=== PATIENT | female | born 1945 | race Caucasian/White ===

== ENCOUNTER → 2017-04-29 | Outpatient (CLI) | payer OTHER | END | disposition home or self-care (01) | LOC: C.PAPS 08:42 | PROVIDERS: ATTEND Obstetrics & Gynecology | DX: Z12.4 Encounter for screening for malignant neoplasm of cervix (principal) ==

== ENCOUNTER → 2017-07-14 | Outpatient (CLI) | payer OTHER ==
--- NOTE | 2017-07-14 13:54 | MAMMOGRAPHY REPORT ---
BILATERAL DIGITAL SCREENING MAMMOGRAM WITH CAD: 07/14/2017 CLINICAL HISTORY: Routine screening. Patient has no complaints. TECHNIQUE: Current study was also evaluated with a Computer Aided Detection (CAD) system. Bilateral CC and MLO views were obtained. COMPARISON: Comparison is made to exams dated: 07/13/2016 mammogram, 07/10/2015 mammogram, 07/09/2014 m ammogram, 06/18/2013 mammogram, and 06/06/2012 mammogram - [facility]. BREAST COMPOSITION: There are scattered areas of fibroglandular density in both breasts. FINDINGS: No suspicious masses, calcifications, or areas of architectural distortion are noted in ei ther breast. There has been no significant interval change compared to prior exams. Scattered bilater al benign-appearing calcifications are not significantly changed. IMPRESSION: ACR BI-RADS CATEGORY 2: BENIGN There is no mammographic evidence of malignancy. A 1 year screening mammogram is recommended. The pa tient will receive written notification of the results. Approximately 10% of breast cancers are not detected with mammography. A negative mammographic report should not delay biopsy if a clinically suggestive mass is present. Mary Wren M.D. ah/:07/14/2017 12:07:46 Underground Miner: Sulma BYERS(R)(M), [facility] letter sent: Normal 1/2 BI-RADS Code: ACR BI-RADS Category 2: Benign
== END | disposition home or self-care (01) ==
LOC: C.MAMM 08:59
PROVIDERS: ATTEND Obstetrics & Gynecology
DX: Z12.31 Encounter for screening mammogram for malignant neoplasm of breast (principal)

== ENCOUNTER → 2017-10-31 | Outpatient (CLI) | payer OTHER ==
[2017-10-31 11:30] LABS: ALBUMIN 3.6 gm/dl (3.4-5.0); ALT/SGPT 24 U/L (12-78); BLOOD UREA NITROGEN 19 mg/dl (7-18); CARBON DIOXIDE 27 mmol/L (21-32); CHOLESTEROL 211 mg/dl (0-200); GLUCOSE 92 mg/dl (70-99); POTASSIUM 4.1 mmol/L (3.5-5.1); SODIUM 139 mmol/L (136-145)
[2017-10-31 11:40] LABS: ALKALINE PHOSPHATASE 102 U/L (45-117); AST/SGOT 17 U/L (15-37); LDL CHOLESTEROL CALCULATED 133 mg/dl; TOTAL PROTEIN 6.9 gm/dl (6.4-8.2)
== END | disposition home or self-care (01) ==
LOC: C.LABBC 08:58
PROVIDERS: ATTEND Nurse Practitioner Adult Health
DX: Z00.00 Encounter for general adult medical examination without abnormal findings (principal); Z13.29 Encounter for screening for other suspected endocrine disorder

== ENCOUNTER → 2017-11-01 | Outpatient (CLI) | payer OTHER | END | disposition home or self-care (01) | LOC: C.MAMM 08:48 | PROVIDERS: ATTEND Nurse Practitioner Adult Health | DX: Z00.00 Encounter for general adult medical examination without abnormal findings (principal); Z78.0 Asymptomatic menopausal state; M85.851 Other specified disorders of bone density and structure, right thigh; M85.852 Other specified disorders of bone density and structure, left thigh ==

== ENCOUNTER 2021-07-22 19:50 | Observation (INO) ==
[2021-07-22 20:38] LABS: Basophils # (auto) 0.02 K/uL (0-0.2); Basophils % (auto) 0.3 %; Eosinophils # (auto) 0.09 K/uL (0-0.5); Eosinophils % (auto) 1.1 %; Hematocrit (blood only) 35.3 % (37-47); Hemoglobin 11.8 g/dL (12.0-16.0); Immature Granulocytes # (auto) 0.01 K/uL (0.00-0.02); Immature Granulocytes % (auto) 0.1 %; Lymphocytes # (auto) 0.89 K/uL (1.2-3.4); Lymphocytes % (auto) 11.1 %; Mean Corpuscular Hgb Conc 33.4 g/dL (32-36); Mean Corpuscular Volume 86.7 fL (80-100); Mean Platelet Volume 10.3 fL (7.4-10.4); Monocytes # (auto) 0.64 K/uL (0.11-0.59); Neutrophils # (auto) 6.35 K/uL (1.4-6.5); Neutrophils % (auto) 79.4 %; Platelet Count 277 K/uL (130-400); RDW Standard Deviation 44.6 fL (36.4-46.3); Red Blood Count 4.07 M/uL (4.2-5.4)
--- NOTE | 2021-07-22 20:50 | XRay Report ---
SINGLE VIEW CHEST CLINICAL HISTORY: Generalized weakness. FINDINGS: An AP, portable, upright chest radiograph is obtained. No prior studies are available for c omparison at the time of dictation. The heart is enlarged. The pulmonary vasculature is noncongested . There is mild elevation of the right hemidiaphragm with bibasilar scarring/atelectasis. No airspace consolidation typical for pneumonia or large pleural effusion is identified. No pneumothorax is seen . The skeletal structures are osteopenic. The bony thorax is grossly intact. Calcific tendinopathy is noted in the right shoulder. IMPRESSION: Cardiomegaly with no acute cardiopulmonary abnormality. ACT 112: Negative or not required by law. Electronically signed by: Mark Malone M.D. 07/22/2021 8:48 PM
[2021-07-22 20:56] LABS: Alanine Aminotransferase 19 U/L (12-78); Albumin Level 3.5 gm/dl (3.4-5.0); Aspartate Aminotransferase 19 U/L (15-37); BUN Creatinine Ratio 15.6 (10-20); Blood Urea Nitrogen 18 mg/dl (7-18); Calcium 8.9 mg/dl (8.5-10.1); Carbon Dioxide 29 mmol/L (21-32); Chloride 108 mmol/L (98-107); Creatinine Clr Calc Pharmacy 40.1 ml/min; Est GFR (African American) 54.1 ml/min; Est GFR (Non-African American) 46.7 ml/min; Glucose 113 mg/dl (70-99); Potassium 4.7 mmol/L (3.5-5.1); Sodium 141 mmol/L (136-145)
[2021-07-22 21:07] LABS: Alkaline Phosphatase 116 U/L (45-117); Bilirubin,Total 0.4 mg/dl (0.2-1); Globulin 3.4 gm/dl (2.5-4.0); Total Protein 6.9 gm/dl (6.4-8.2); Troponin I < 0.015 ng/ml (0-0.045)
--- NOTE | 2021-07-22 22:09 | Emergency Department Note ---
Impression & Plan Syncope ED Provider Note NAME: CAMERON ROACH AGE: 76 SEX: F : 1945 ARRIVES VIA: Walk-In INFORMANT: Patient, ED PROVIDER(S): Valentin Carter MD Chief Complaint: Likely syncope HPI: Patient does present due to concern for an episode that she does not quite recall the events of. The patient states that she had been using the bathroom and somewhat lightheaded. The patient states that she was not straining. The patient got up to go wash her hands and subsequently thereafter does not remember. Patient's relates that he found her on the floor after here to [facility]. Patient does complain of some mild left frontal headache. The patient did not take any blood thinners. There was no tongue biting or incontinence. No seizure-like activity. This episode is never happened before. Patient is vaccinated for Covid. relates that this occurred around 6 PM. The patient was down for approximate 10 minutes. Patient denies any current neck pain, numbness tingling or focal weakness. The patient denies any chest or abdominal pain. Patient did not take anything for her headache prior to arrival. Is achy frontal left-sided and worse with palpation. ROS: See HPI for pertinent positives and negatives. A total of 10 systems were reviewed and otherwise negative. Past medical history: See below Surgical history: See below Social history: See below Physical Exam: GENERAL: NAD, wearing a mask, non-toxic. EYE EXAM: Normal conjunctiva. PERRL, no anisocoria and EOM's grossly intact w/o pain. Head: Left-sided frontal contusion with ecchymosis, mild TTP, no obvious deformity. NECK: Supple, no nuchal rigidity, no adenopathy, non-tender. No signs of meningismus. No midline C-spine TTP. LUNGS: Clear to auscultation. Normal chest wall mechanics. HEART: NSR, no MRG. ABDOMEN: Abdomen soft, non-tender, normo-active bowel sounds, no masses, no rebound or guarding. BACK: No CVA TTP. SKIN: No rashes. Bruising to the left forehead as noted above. UPPER EXTREMITIES: Upper extremities are grossly normal. No obvious deformities or TTP. LOWER EXTREMITIES: Grossly normal, no edema. No obvious deformities or TTP. NEURO EXAM: A&O x3, cranial nerves II-XII grossly intact, normal speech, moves all 4 extremities on command w/o issue. No sensory deficits. Differential diagnoses: Vasovagal event, dehydration, infection, hypoglycemia, electrolyte abnormalities, cardiac sources, intracerebral event, pulmonary embolism, seizure, toxicologic, neurologic, as well as other pathologies. Course: Patient was seen and evaluated the bedside. Full history physical exam was performed. EKG interpreted by me Normal sinus rhythm, rate of 72, normal intervals, normal axis, T wave inversion in lead III not contiguous leads. No ST changes. Imaging Studies: See Below Cardiac monitoring: An order was placed for continuous cardiac monitoring. The monitor shows a rate of 75 with sinus rhythm. MDM: Patient did present due to concern for syncope. This had occurred shortly after using the bathroom but the patient had not been straining. Given that the patient has no prior history blood work was obtained along with a CT of the head. EKG with no obvious arrhythmia. Blood work grossly unremarkable. Patient was admitted to the medicine service by Dr. Hernandez. Past Med/Surg History Medical History Hyperlipidemia Osteopenia Surgical History H/O dilation and curettage History of cataract surgery RT Hx of colonoscopy S/P cholecystectomy S/P tonsillectomy and adenoidectomy Family History Father Coronary heart disease Osteoarthritis Squamous cell carcinoma Mother Hypertension Coronary heart disease Denies family history of Ovarian cancer Prostate cancer Diabetes Myocardial infarction Breast cancer Lung cancer Colorectal cancer Stroke Social History Smoking Status: Never smoker Second Hand Exposure: No; Hx Alcohol Use: No Hx Substance Use: No Preferred Language: Vincentian Communication Ability: Effective Visual Impairment: Limited Hearing Ability: Normal End Finder Forming Department Required: No Beliefs That Will Affect Care: None marital status: Current Living Situation: Spouse current occupational status: retired How many Children do You have: 2 Feels Safe at Home: Yes Childhood Exposure to Second-Hand Smoke: No caffeine: Yes Dental Care, Regularly: Yes Physical Activity Frequency: 3-4 Times per Week Seatbelt Use: always Sunscreen Use: Yes Assistive Devices: Glasses Allergies Allergies Allergy/AdvReac Type Severity Reaction Status Date / Time No Known Drug Allergies Allergy Unknown Verified 07/22/21 23:10 Home Meds Home Medications Medication Instructions Recorded Confirmed atorvastatin 10 mg tablet 10 mg PO QPM 03/30/21 07/22/21 Results & Data (ED) Vital Signs Vital Signs - 24 hr 07/22/21 19:56 07/22/21 22:14 07/22/21 22:15 Temperature 36.5 C Temperature Source Temporal Artery Scan Pulse Rate 74 Pulse Rate from SpO2 Sensor Respiratory Rate 16 Respiratory Effort / Characteristics Non-Labored Spontaneous Respiratory Depth Normal Blood Pressure 137/66 Blood Pressure Mean 89 Blood Pressure Position Sitting Pulse Oximetry 98 Oxygen Delivery Method Room Air Room Air Room Air Sepsis Recent Fever Within 48 Hours No Sepsis New/Unexplained Change in Mental Status N/A Sepsis Action Taken by Nursing No Action Required 07/22/21 23:15 07/22/21 23:20 07/22/21 23:30 Temperature Temperature Source Pulse Rate 73 68 68 Pulse Rate from SpO2 Sensor 74 69 68 Respiratory Rate 27 H 21 23 Respiratory Effort / Characteristics Respiratory Depth Blood Pressure 134/68 Blood Pressure Mean 90 Blood Pressure Position Pulse Oximetry 97 96 97 Oxygen Delivery Method Sepsis Recent Fever Within 48 Hours Sepsis New/Unexplained Change in Mental Status Sepsis Action Taken by Nursing 07/22/21 23:40 07/22/21 23:50 07/23/21 00:00 Temperature Temperature Source Pulse Rate 68 67 Pulse Rate from SpO2 Sensor 68 76 69 Respiratory Rate 17 19 Respiratory Effort / Characteristics Respiratory Depth Blood Pressure 136/61 Blood Pressure Mean 86 Blood Pressure Position Pulse Oximetry 97 95 96 Oxygen Delivery Method Sepsis Recent Fever Within 48 Hours Sepsis New/Unexplained Change in Mental Status Sepsis Action Taken by Nursing 07/23/21 00:10 07/23/21 00:20 07/23/21 00:30 Temperature Temperature Source Pulse Rate 65 69 61 Pulse Rate from SpO2 Sensor 66 67 63 Respiratory Rate 19 19 17 Respiratory Effort / Characteristics Respiratory Depth Blood Pressure 138/73 Blood Pressure Mean 94 Blood Pressure Position Pulse Oximetry 96 96 97 Oxygen Delivery Method Sepsis Recent Fever Within 48 Hours Sepsis New/Unexplained Change in Mental Status Sepsis Action Taken by [facility] Medications Current Medication List: was personally reviewed by me Laboratory Data Attestation: I reviewed the patient's lab results. Result diagrams: 07/22/21 20:29 07/22/21 20:29 Lab Results 07/22/21 07/22/21 07/22/21 Range/Units 20:29 20:29 23:13 WBC 8.00 (4.8-10.8) K/uL RBC 4.07 L (4.2-5.4) M/uL Hgb 11.8 L (12.0-16.0) g/dL Hct 35.3 L (37-47) % MCV 86.7 (80-100) fL MCH 29.0 (25-34) pg MCHC 33.4 (32-36) g/dL RDW Std Deviation 44.6 (36.4-46.3) fL RDW Coeff of Mercedes 14.0 (11.5-14.5) % Plt Count 277 (130-400) K/uL MPV 10.3 (7.4-10.4) fL Immature Gran % (Auto) 0.1 % Neut % (Auto) 79.4 % Lymph % (Auto) 11.1 % Wagoner % (Auto) 8.0 % Eos % (Auto) 1.1 % Baso % (Auto) 0.3 % Neut # (Auto) 6.35 (1.4-6.5) K/uL Lymph # (Auto) 0.89 L (1.2-3.4) K/uL Wagoner # (Auto) 0.64 H (0.11-0.59) K/uL Eos # (Auto) 0.09 (0-0.5) K/uL Baso # (Auto) 0.02 (0-0.2) K/uL Immature Gran # (Auto) 0.01 (0.00-0.02) K/uL Sodium 141 (136-145) mmol/L Potassium 4.7 (3.5-5.1) mmol/L Chloride 108 H (98-107) mmol/L Carbon Dioxide 29 (21-32) mmol/L Anion Gap 4.0 (3-11) BUN 18 (7-18) mg/dl Creatinine 1.14 (0.6-1.2) mg/dl Est Cr Clr Drug Dosing 40.1 ml/min Est GFR ( Amer) 54.1 ml/min Est GFR (Non-Af Amer) 46.7 ml/min BUN/Creatinine Ratio 15.6 (10-20) Glucose 113 H (70-99) mg/dl Calcium 8.9 (8.5-10.1) mg/dl Magnesium 2.1 (1.8-2.4) mg/dl Total Bilirubin 0.4 (0.2-1) mg/dl AST 19 (15-37) U/L ALT 19 (12-78) U/L Alkaline Phosphatase 116 (45-117) U/L Troponin I < 0.015 (0-0.045) ng/ml Total Protein 6.9 (6.4-8.2) gm/dl Albumin 3.5 (3.4-5.0) gm/dl Globulin 3.4 (2.5-4.0) gm/dl Albumin/Globulin Ratio 1.0 (0.9-2) TSH 4.450 (0.300-4.500) uIu/ml Urine Color Urine Appearance (Clear) Urine pH (4.5-7.5) Ur Specific [place] (1.000-1.030) Urine Protein (Negative) Urine Glucose (UA) (Negative) Urine Ketones (Negative) Urine Blood (Negative) Urine Nitrite (Negative) Urine Bilirubin (Negative) Urine Urobilinogen (Negative) Ur Leukocyte Esterase (Negative) Urine WBC (Auto) (0-5) /hpf Urine RBC (Auto) (0-4) /hpf U Hyaline Cast (Auto) (0-5) /lpf U Epithel Cells (Auto) (0-5) /lpf Urine Bacteria (Auto) (Negative) COVID-19 Eval Order Covid19 at [facility] SARS-CoV-2 (PCR) (Negative) 07/22/21 07/22/21 Range/Units 23:13 23:42 WBC (4.8-10.8) K/uL RBC (4.2-5.4) M/uL Hgb (12.0-16.0) g/dL Hct (37-47) % MCV (80-100) fL MCH (25-34) pg MCHC (32-36) g/dL RDW Std Deviation (36.4-46.3) fL RDW Coeff of Mercedes (11.5-14.5) % Plt Count (130-400) K/uL MPV (7.4-10.4) fL Immature Gran % (Auto) % Neut % (Auto) % Lymph % (Auto) % Wagoner % (Auto) % Eos % (Auto) % Baso % (Auto) % Neut # (Auto) (1.4-6.5) K/uL Lymph # (Auto) (1.2-3.4) K/uL [place]er # (Auto) (0.11-0.59) K/uL Eos # (Auto) (0-0.5) K/uL Baso # (Auto) (0-0.2) K/uL Immature Gran # (Auto) (0.00-0.02) K/uL Sodium (136-145) mmol/L Potassium (3.5-5.1) mmol/L Chloride (98-107) mmol/L Carbon Dioxide (21-32) mmol/L Anion Gap (3-11) BUN (7-18) mg/dl Creatinine (0.6-1.2) mg/dl Est Cr Clr Drug Dosing ml/min Est GFR ( Amer) ml/min Est GFR (Non-Af Amer) ml/min BUN/Creatinine Ratio (10-20) Glucose (70-99) mg/dl Calcium (8.5-10.1) mg/dl Magnesium (1.8-2.4) mg/dl Total Bilirubin (0.2-1) mg/dl AST (15-37) U/L ALT (12-78) U/L Alkaline Phosphatase (45-117) U/L Troponin I (0-0.045) ng/ml Total Protein (6.4-8.2) gm/dl Albumin (3.4-5.0) gm/dl Globulin (2.5-4.0) gm/dl Albumin/Globulin Ratio (0.9-2) TSH (0.300-4.500) uIu/ml Urine Color Yellow Urine Appearance Clear (Clear) Urine pH 7.0 (4.5-7.5) Ur Specific [place] 1.017 (1.000-1.030) Urine Protein Negative (Negative) Urine Glucose (UA) Negative (Negative) Urine Ketones Negative (Negative) Urine Blood Negative (Negative) Urine Nitrite Negative (Negative) Urine Bilirubin Negative (Negative) Urine Urobilinogen Negative (Negative) Ur Leukocyte Esterase 1+ H (Negative) Urine WBC (Auto) 5-10 H (0-5) /hpf Urine RBC (Auto) 0-4 (0-4) /hpf U Hyaline Cast (Auto) 0 (0-5) /lpf U Epithel Cells (Auto) 10-20 H (0-5) /lpf Urine Bacteria (Auto) Negative (Negative) COVID-19 Eval Order SARS-CoV-2 (PCR) NEGATIVE (Negative) Administered Medications Discontinued Medications Sodium Chloride (Nss) 500 mls @ 999 mls/hr IV .[id number] Stop: 07/22/21 22:45 Last Infusion: 07/22/21 23:43 Dose: 0 mls/hr Documented by: [id number] Admin: 07/22/21 23:06 Dose: 999 mls/hr Documented by: [id number] Ioversol (Optiray 320 125ml) 125 ml IV ONCE ONE Stop: 07/23/21 00:58 Last Admin: 07/23/21 00:57 Dose: 108 ml Documented by: [id number] Imaging Data Radiologist's Impression: Chest X-Ray 07/22/21 20:01 SINGLE VIEW CHEST CLINICAL HISTORY: Generalized weakness. FINDINGS: An AP, portable, upright chest radiograph is obtained. No prior studies are available for comparison at the time of dictation. The heart is enlarged. The pulmonary vasculature is noncongested. There is mild elevation of the right hemidiaphragm with bibasilar scarring/atelectasis. No airspace consolidation typical for pneumonia or large pleural effusion is identified. No pneumothorax is seen. The skeletal structures are osteopenic. The bony thorax is grossly intact. Calcific tendinopathy is noted in the right shoulder. IMPRESSION: Cardiomegaly with no acute cardiopulmonary abnormality. ACT 112: Negative or not required by law. Electronically signed by: Mark Malone M.D. 07/22/2021 8:[address] 07/22/21 22:10 CT head/brain wo con Clinical Indication: MN ^syncope, headstrike . Technique: Contiguous axial CT images of the head were acquired from the base of the skull to the vertex without intravenous contrast administration. Images were viewed in brain, subdural and bone windows. Automated dose lowering techniques and/or adjustment according to patient size were utilized for this exam. Comparison: None available at the time of this dictation. Findings: The ventricles, basal cisterns, and cerebral sulci are normal. There is no acute intracranial hemorrhage or evidence of acute territorial infarction. Neither mass effect, shift of the midline structures, nor abnormal extra-axial fluid collections are shown. Imaged portions of the paranasal sinuses and mastoid air cells are clear. The orbits appear normal. There are no acute fractures of the calvaria or scalp swelling. Impression: No acute intracranial hemorrhage, evidence of acute territorial infarction, or other acute intracranial disease process. ACT 112: Negative or not required by law. Electronically signed by: Tu Ortega M.D. 07/22/2021 10:36 PM Discharge Plan Visit Data Chief Complaint: Syncope Stated Complaint: FOUND ON FLOOR FACE DOWN, CONFUSION ED Provider: Valentin Carter Discharge Problem: Syncope Patient Disposition: Admitted As Inpatient Prescriptions Prescriptions: No Action atorvastatin 10 mg tablet 10 mg PO QPM RF: 0 Referrals Referrals: Ravi Wheeler DO [Primary Care Provider] -
[2021-07-22] MEDS ORDERED: SODIUM CHLORIDE 0.9% 500 ML IV SCH (22:15)
[2021-07-22 22:28] LABS: Magnesium 2.1 mg/dl (1.8-2.4)
--- NOTE | 2021-07-22 22:37 | CT Scan Report ---
CT head/brain wo con Clinical Indication: MN ^syncope, headstrike . Technique: Contiguous axial CT images of the head were acquired from the base of the skull to the rufina ana lilia without intravenous contrast administration. Images were viewed in brain, subdural and bone windo ws. Automated dose lowering techniques and/or adjustment according to patient size were utilized for this exam. Comparison: None available at the time of this dictation. Findings: The ventricles, basal cisterns, and cerebral sulci are normal. There is no acute intracranial hemorrh age or evidence of acute territorial infarction. Neither mass effect, shift of the midline structures , nor abnormal extra-axial fluid collections are shown. Imaged portions of the paranasal sinuses and mastoid air cells are clear. The orbits appear normal. There are no acute fractures of the calvaria or scalp swelling. Impression: No acute intracranial hemorrhage, evidence of acute territorial infarction, or other acute intracrani al disease process. ACT 112: Negative or not required by law. Electronically signed by: Tu Ortega M.D. 07/22/2021 10:36 PM
[2021-07-23 00:14] LABS: Appearance Urine Clear (Clear); Bacteria Urine Automated Negative (Negative); Bilirubin Urine Negative (Negative); Blood Urine Negative (Negative); Cast Urine Automated 0 /lpf (0-5); Color Urine Yellow; Glucose Urine UA Negative (Negative); Ketones Urine Negative (Negative); Leukocyte Esterase Urine 1+ (Negative); Nitrite Urine Negative (Negative); Protein Urine Negative (Negative); RBC Urine Automated 0-4 /hpf (0-4); Specific Gravity Urine 1.017 (1.000-1.030); Urobilinogen Urine Negative (Negative)
--- NOTE | 2021-07-23 00:43 | History & Physical Report ---
Date of Service July 23, 2021 Assessment & Plan (1) Syncope: (2) Hyperlipidemia: Plan: 76 yo F Hx HLD admitted for evaluation of syncope. Syncope: Differentials include TIA, vasovagal syncope, orthostatic syncope, seizure. Presented with a syncopal event, her for syncopal event in her life, shortly after feeling lightheaded while going to the bathroom and getting up to wash her hands. No seizure-like activity was witnessed by her who was in attendance at the time. No metabolic abnormalities or signs of infection that would account for syncope. CT head without evidence of stroke. CTA head and neck ordered to evaluate for blockage causing decreased cerebral blood flow. Echocardiogram ordered to rule out structural heart defects. We will keep patient on telemetry overnight to monitor for arrhythmias. Order placed for orthostatic vital signs. In general, given the patient's history, do suspect vasovagal/orthostatic syncope in the setting of decreased p.o. water intake and recent defecation. Did advise patient that she should have an increase in water intake from her current baseline. Patient does not endorse chronic constipation; would in general advise medication as needed for constipation to prevent straining and therefore vasovagal response. A1c ordered with morning labs to evaluate risk factors for cardiovascular disease. Hyperlipidemia: History of, on atorvastatin 10 mg daily. Most recent lipid panel 1 month ago with good cholesterol control on current regimen, will continue. CODE STATUS: Full code FEN: Regular diet DVT prophylaxis: SCDs, History of Present Illness Chief Complaint: syncope Primary Care Provider: Ravi Wheeler DO 76 yo F Hx HLD presented to the ER via EMS due to a syncopal episode at home. Per the patient, she was using the bathroom and started to feel dizzy when having a bowel movement. This dizziness subsided, and she then got up and washed her hands. She then remembers waking up on the floor. Per her , she was passed out on the floor and had hit her head. She was passed out for several minutes prior to coming to, and was confused at the time. No seizure- like activity, no tongue biting, no incontinence of bowels or bladder. Per patient, she did not have any shortness of breath, chest pain, lightheadedness, dizziness prior to this syncopal event. She denies any unilateral numbness, tingling, weakness in her extremities or her face, dysarthria, dysphagia. She has not had a syncopal event in the past. She reports that she did not have breakfast this morning and had a light lunch, but did have a dinner of beef tips and mashed potatoes for dinner. Admits to inadequate water intake. In the ER patient was noted to have normal vital signs. CBC noted to be normal without anemia, CMP normal, undetectable troponin, normal TSH. UA without evidence of infection, COVID-[address] head performed which did not show any acute intracranial pathology. Chest x-ray revealed cardiomegaly but no acute cardiopulmonary process. Allergies Allergy/AdvReac Type Severity Reaction Status Date / Time No Known Drug Allergies Allergy Unknown Verified 07/22/21 23:10 Home Medications Medication Instructions Recorded Confirmed Type atorvastatin 10 mg tablet 10 mg PO QPM 03/30/21 07/22/21 History Past Med/Surg History Medical History Hyperlipidemia Osteopenia Surgical History H/O dilation and curettage History of cataract surgery RT Hx of colonoscopy S/P cholecystectomy S/P tonsillectomy and adenoidectomy Family History Father Coronary heart disease Osteoarthritis Squamous cell carcinoma Mother Hypertension Coronary heart disease Denies family history of Ovarian cancer Prostate cancer Diabetes Myocardial infarction Breast cancer Lung cancer Colorectal cancer Stroke Social History Smoking Status: Never smoker Second Hand Exposure: No; Hx Alcohol Use: No Hx Substance Use: No Preferred Language: Malay Communication Ability: Effective Visual Impairment: Limited Hearing Ability: Normal Stain Dipper Required: No Beliefs That Will Affect Care: None marital status: Current Living Situation: Spouse current occupational status: retired How many Children do You have: 2 Feels Safe at Home: Yes Childhood Exposure to Second-Hand Smoke: No caffeine: Yes Dental Care, Regularly: Yes Physical Activity Frequency: 3-4 Times per Week Seatbelt Use: always Sunscreen Use: Yes Assistive Devices: None Review of Systems Review of Systems: All systems reviewed & are unremarkable except as noted in HPI & below Constitutional: no fever, no chills and no malaise Respiratory: no cough and no dyspnea Cardiovascular: no chest pain, no palpitations and no edema Gastrointestinal: no abdominal pain, no constipation and no diarrhea/loose stools Genitourinary: no dysuria and no hematuria Physical Exam Constitutional: WD/WN, vitals as above Eyes: PERRL, conjunctivae normal, anicteric sclerae ENMT: external ear and nose normal, oropharynx normal Neck: normal visual inspection Respiratory: normal respiratory effort, lungs clear to auscultation Cardiovascular: RRR, no murmur, no edema Gastrointestinal (Abdomen): normal bowel sounds, soft, nontender, no hepatosplenomegaly Musculoskeletal: no cyanosis or clubbing, extremities motor strength 5/5 Skin: no rashes, warm and dry Neurologic: AAOx3, normal speech. PERRLA, EOMI, no nystagmus. Normal visual acuity bilaterally. Bilateral UE, LE, and face without sensory or motor deficits. DTRs normal. II- XII intact bilaterally. No pronator drift. No tremor. No ataxia. Psychiatric: A+Ox3, euthymic affect Results & Data Results & Data ([facility]) Vital Signs (Past 12 Hours) Vital Signs Temp Pulse Resp BP Pulse Ox 07/23/21 00:30 61 17 138/73 97 07/23/21 00:20 69 19 96 07/23/21 00:10 65 19 96 07/23/21 00:00 67 19 136/61 96 07/22/21 23:50 95 07/22/21 23:40 68 17 97 07/22/21 23:30 68 23 134/68 97 07/22/21 23:20 68 21 96 07/22/21 23:15 73 27 H 97 07/22/21 19:56 36.5 C 74 16 137/66 98 Code Status & VTE Plan VTE Prophylaxis Plan VTE Prophylaxis will be ordered: Yes Supervising Physician Co-Signing Physician Notes Attending addendum: I have physically seen this patient, have supervised the medical residents activities, and agree with the H&P unless as otherwise noted. Assessment and Plan: Syncope- Differential as noted, including defecation syncope Advised bowel regimen CT head negative CTA head and neck negative Following orthostatic vitals Hydration with IV fluids Hyperlipidemia- Continue atorvastatin 10 mg daily Remaining orders and notations as noted Resident Activity Tracking Resident Involvement: Resident Care Provided Care Provided: Adult [facility]
[2021-07-23] MEDS ORDERED: OPTIRAY 320 125ml IV ONE (00:57)
[2021-07-23] MEDS ORDERED: ACETAMINOPHEN 325 MG TAB ONE (00:59)
[2021-07-23] MEDS ORDERED: ACETAMINOPHEN 500 MG TAB PO STA (01:02)
[2021-07-23] MEDS ORDERED: ONDANSETRON INJ 2 MG/ML 2 ML VIAL IV PRN (02:09)
[2021-07-23] MEDS ORDERED: ACETAMINOPHEN 325 MG TAB PO PRN (02:09)
[2021-07-23] MEDS ORDERED: PHARMACIST DISCHARGE MED REC CONSULT PRN (02:09)
[2021-07-23 07:10] LABS: Basophils # (auto) 0.02 K/uL (0-0.2); Basophils % (auto) 0.4 %; Eosinophils # (auto) 0.09 K/uL (0-0.5); Eosinophils % (auto) 1.6 %; Hematocrit (blood only) 33.3 % (37-47); Hemoglobin 11.1 g/dL (12.0-16.0); Lymphocytes # (auto) 1.39 K/uL (1.2-3.4); Lymphocytes % (auto) 24.3 %; Mean Corpuscular Hemoglobin 28.6 pg (25-34); Mean Corpuscular Hgb Conc 33.3 g/dL (32-36); Mean Corpuscular Volume 85.8 fL (80-100); Mean Platelet Volume 10.2 fL (7.4-10.4); Monocytes # (auto) 0.41 K/uL (0.11-0.59); Monocytes % (auto) 7.2 %; Neutrophils % (auto) 66.5 %; Platelet Count 248 K/uL (130-400); RDW Coefficient of Variation 14.2 % (11.5-14.5); RDW Standard Deviation 44.8 fL (36.4-46.3); Red Blood Count 3.88 M/uL (4.2-5.4); White Blood Count 5.71 K/uL (4.8-10.8)
[2021-07-23 07:31] LABS: Estimated Average Glucose 111 mg/dl; Hemoglobin A1C 5.5 % (4.5-5.6)
[2021-07-23 07:58] LABS: Calcium 8.9 mg/dl (8.5-10.1); Creatinine Clr Calc Pharmacy 56.9 ml/min; Est GFR (Non-African American) 71.6 ml/min; Potassium 4.2 mmol/L (3.5-5.1)
--- NOTE | 2021-07-23 08:14 | CT Scan Report ---
CT angio neck with con CLINICAL HISTORY: 76 years-old Female with Syncope. Acute syncope COMPARISON STUDY: CTA had of same day TECHNIQUE: Following the IV administration of 108 mL of Optiray, CT angiogram of the neck was perform ed from the aortic arch to the skull base. Images are reviewed in the axial, sagittal, and coronal pl anes. 3-D MIPS images are created and assessed. IV contrast was administered without complication. Al l measurements were calculated based on NASCET criteria. A dose lowering technique was utilized adhe ring to the principles of ALARA. CT DOSE: 547.06 mGy.cm FINDINGS: The imaged opacified pulmonary artery appears normal and patent. Mild atherosclerosis of the thoracic aortic arch with patency of the innominate and imaged subclavian arteries. The common carotid arteri es are patent. Mild atherosclerotic plaque of the carotid bulbs and proximal cervical segments of the internal carotid arteries without high-grade stenosis. Additional calcified plaque of the cavernous and supraclinoid segments. The vertebral arteries are codominant and widely patent. The basilar arter y is patent. Mild groundglass densities of the lung apices with mosaic attenuation suggest atelectasis. Mild pleur al parenchymal scarring of the lung apices. 4 mm left apical nodule on image 83 series 4. 3 mm nodule of the right upper lobe on image 61. Atrophic heterogeneous thyroid. Unremarkable soft tissues. Dege nerative changes of the spine. IMPRESSION: 1. Mild atherosclerotic plaque of the carotid bulbs results in less than 50% stenosis bilaterally. 2. Otherwise unremarkable CTA of the neck. 3. Low suspicion 3 mm right upper lobe and 4 mm left upper lobe pulmonary nodules. Please refer to below summary of Fleischner criteria recommendations for follow-up of incidental CT n odules (Radha Wilkerson, Guidelines for management of small pulmonary nodules detected on CT scans: A sta tement from the Fleischner Society, Radiology 237: [phone].) SOLID NODULES Multiple nodules size: <6 mm * Low risk patients: no routine follow-up * high risk patients: optional CT at 12 months Note: newly detected indeterminate nodule in persons 35 years of age or older. * Low risk patients: minimal or absent history of smoking and/or other known risk factors * high risk patients: history of smoking or of other known risk factors (e.g. first degree relative with lung cancer, or exposure to asbestos, radon, uranium) * if a nodule up to 8 mm is partly solid or is ground glass further follow-up is required after 24 m onths to exclude possible slow growing adenocarcinoma (TANIA) ACT 112: Negative or not required by law. The above report was generated using voice recognition software. It may contain grammatical, syntax o r spelling errors. Electronically signed by: Macho Webber M.D. 07/23/2021 8:13 AM
--- NOTE | 2021-07-23 09:23 | CT Scan Report ---
CTA ANGIOGRAPHY OF THE HEAD CLINICAL HISTORY: Syncope COMPARISON STUDY: Head CT July 22, 2021. TECHNIQUE: Helical axial images of the head were obtained following uneventful intravenous administr ation of 108 cc of Optiray. Sagittal and coronal reconstructions were viewed as well as maximal inten sity projections on an independent 3-D workstation. Automated exposure control was utilized for the study. A dose lowering technique was utilized adhering to the principles of ALARA. FINDINGS: No acute intracranial hemorrhage, midline shift or mass effect is present. Ventricular syst em is normal. Basilar cisterns are patent. There are no extra axial collections. The bilateral M1, M2 , A1 and A2 segments are patent. There is no central vessel occlusion. No intracranial aneurysm is id entified. There is mild to moderate calcified plaque within bilateral cavernous carotids without sign ificant stenosis. IMPRESSION: No central vessel occlusion. No intracranial aneurysm. ACT 112: Negative or not required by law. Electronically signed by: Prashant Jewell M.D. 07/23/2021 9:22 AM
[2021-07-23] MEDS ORDERED: STROKE PATIENT DISCHARGE STA (13:21)
--- NOTE | 2021-07-23 13:22 | Discharge Summary ---
Date of Service July 23, 2021 Admission HPI Per Admitting Provider 76 yo F Hx HLD presented to the ER via EMS due to a syncopal episode at home. Per the patient, she was using the bathroom and started to feel dizzy when having a bowel movement. This dizziness subsided, and she then got up and washed her hands. She then remembers waking up on the floor. Per her , she was passed out on the floor and had hit her head. She was passed out for several minutes prior to coming to, and was confused at the time. No seizure- like activity, no tongue biting, no incontinence of bowels or bladder. Per patient, she did not have any shortness of breath, chest pain, lightheadedness, dizziness prior to this syncopal event. She denies any unilateral numbness, tingling, weakness in her extremities or her face, dysarthria, dysphagia. She has not had a syncopal event in the past. She reports that she did not have breakfast this morning and had a light lunch, but did have a dinner of beef tips and mashed potatoes for dinner. Admits to inadequate water intake. In the ER patient was noted to have normal vital signs. CBC noted to be normal without anemia, CMP normal, undetectable troponin, normal TSH. UA without evidence of infection, COVID-[address] head performed which did not show any acute intracranial pathology. Chest x-ray revealed cardiomegaly but no acute cardiopulmonary process. Principal Diagnosis Syncopal episode, likely due to dehydration, recent BM with increased vagal tone Discharge Exam General: well developed, well nourished, no acute distress, comfortable Neck: supple, trachea midline, normal thyroid Lungs: clear to auscultation bilaterally, normal respiratory effort, no accessory muscle use, no distress Heart: regular S1 and S2, no murmur, peripheral pulses normal, capillary refill normal, no edema Abdomen: soft, NT, ND, + BS, no hepatomegaly, normal to percussion Extremities: normal in appearance, no cyanosis, no petechiae, strength is 5/5 bilaterally Neuro: awake, cooperative, moves all extremities, no focal motor deficits, CN II-XII intact, sensation in extremities intact, normal speech Skin: warm, dry, no rash, normal turgor Psych: Awake, alert oriented x 3, euthymic affect Discharge Data Allergies Allergy/AdvReac Type Severity Reaction Status Date / Time No Known Drug Allergies Allergy Unknown Verified 07/22/21 23:10 Consultations 07/22/21 23:07 ED Decision to Admit Stat Ordered Studies 07/22/21 22:10 CT head/brain wo con Stat 07/23/21 00:44 CT angio head w con Urgent CT angio neck with con Urgent Hospital Course (1) Syncope: most likely due to dehydration, low intravascular volume (admits she does not drink a lot) coupled with increased vagal tone from recent BM no signs of ACS, no arrhythmias on monitor, no infection, renal function stable no focal motor deficits to suggest stroke carotid imaging shows plaque but < 50% stenosis, would not have lead to syncope up on her feet, walking independently, feels well and wants to go home instructed to stay well hydrated use stool softener to avoid excess straining to have BM if she has further syncope at home would recommend event monitor or loop recorder follow up with PCP (2) Hyperlipidemia: Total Time Total Time Spent Total Time Spent (In Minutes): 25 Discharge Plan Discharge Items Patient Disposition: Home - Self-Care Reason For Visit: SYNCOPE Discharge Diagnosis: Syncopal episode, likely vasovagal Condition on Discharge: Good Goals: stay well hydrated Activity: Resume your previous activity Driving/Machine Use: No limitations Weightbearing: Full weightbearing Non-emergency contact: Primary Care Provider Call non-emergency contact if: you have any medication questions Follow-up/Referrals: Ravi Wheeler DO [Primary Care Provider] - 07/30/21 11:00 am () Diet: Regular Addtl Attending Provider Instructions: Medications: no changes Syncopal episode: likely multifactorial with low volume (dehydrated) and recent bowel movement increasing vagal tone which lowers blood pressure no arrhythmias on the monitor no signs of heart attack or stroke imaging of the neck shows carotid arteries have some mild plaque build up, < 50% which is not significant echo was done, report pending, but no murmurs on ausultation of heart so doubt you have aortic stenosis please stay well hydrated, try to drink 2L of fluids a day this will help keep bowels soft as well, can use a gentle stool softener if desired, Colace 100mg twice a day or Senna daily follow up with Dr. Wheeler Pending Studies at Discharge: Yes Studies:: echocardiogram report Stand-Alone Forms: My [facility], Smoking Cessation Medications and DC Order Prescriptions: Continued atorvastatin 10 mg tablet 10 mg PO QPM RF: 0 Discharge Orders: Discharge Order (Routine); Ordered 07/23/21 Ordered By: Tu Sloan Admission Data Admit Date/Time: 07/23/21 00:37 Attending Provider: Tu Sloan Admit Provider: Saira Jay Primary Care Provider: Ravi Wheeler Other Providers: Gilberto Hannah Other Interventions: Discharge Summary Assessment (RN) Last Done: 07/23/21 14:21 Coding Level of Care Code 04149 OBS Care - Discharge Diagnoses Syncope R55 Hyperlipidemia E78.5
--- NOTE | 2021-07-23 15:00 | XCELERA ---
[id number]
--- NOTE | 2021-07-23 16:35 | Electrocardiogram Report ---
Test Reason : Blood Pressure : / mmHG Vent. Rate : 072 BPM Atrial Rate : 072 BPM P-R Int : 132 ms QRS Dur : 090 ms QT Int : 410 ms P-R-T Axes : 046 070 029 degrees QTc Int : 448 ms Normal sinus rhythm When compared with ECG of 20-APR-1999 08:19, Nonspecific T wave abnormality now evident in Anterior leads Confirmed by Best Sykes ([id number]) on 07/23/2021 4:35:10 PM Referred By: REFERRED SELF Confirmed By:Best Sykes
[2021-07-23] MEDS ORDERED: ATORVASTATIN 10 MG TAB PO SCH (21:00)
--- NOTE | 2021-07-24 01:39 | Billing Data ---
Date of Service July 24, 2021 Coding Level of Care Code INT OBSERVATION CARE 70M LVL 3
== END 2021-07-23 15:12 | disposition home or self-care (01) ==
LOC: 2N 19:50 → ED 19:50 → SUATTDRO 07-23 00:37 → 2N 07-23 01:54